=== PATIENT | female | born 1955 | race Caucasian/White ===

== ENCOUNTER 2023-05-02 17:10 | Emergency (ER) | payer BC ==
[2023-05-02 17:39] VITALS: BP 116/56; PULSE 70; RESP 18; TEMP 98.9; BMI 37.7
[2023-05-02] MEDS ORDERED: KETOROLAC TROMETHAMINE 15 MG/ML VIAL ONE (18:29)
[2023-05-02] MEDS: KETOROLAC TROMETHAMINE 30 MG/1 ML VIAL IM ONE (18:37)
== END 2023-05-02 18:56 | disposition home or self-care (01) ==
LOC: FER 17:10
PROC: 3E0233Z Introduction of Anti-inflammatory into Muscle, Percutaneous Approach (ICD-10-PCS; principal; 2023-05-02)
DX: M25.532 Pain in left wrist (principal); G56.02 Carpal tunnel syndrome, left upper limb; R20.0 Anesthesia of skin
CPT/HCPCS: 99284-25